=== PATIENT | male | born 1955 | race Caucasian/White ===

== ENCOUNTER 2016-07-21 05:39 | Emergency (ER) ==
[2016-07-21] MEDS ORDERED: ASPIRIN PO STA (06:15)
[2016-07-21] MEDS ORDERED: NS 1,000 ML IV ONE (06:15)
[2016-07-21] MEDS ORDERED: NS 1,000 ML ONE (06:15)
[2016-07-21 06:29] LABS: MANUAL DIFF NEEDED? NO
[2016-07-21 06:31] LABS: BASO% 0.4 % (0.0-0.8); EOS# 0.35 X1000 (0.0-0.7); EOS% 5.2 % (0.0-10.0); HEMATOCRIT 43.8 % (42.0-52.0); HEMOGLOBIN 15.4 g/dL (14.0-18.0); LYMPH# 2.05 X1000 (1.2-3.4); LYMPH% 30.2 % (20.5-51.1); MCH 30.2 PG (27-31); MCHC 35.2 g/dL (33-37); MCV 85.9 FL (81-99); MONO# 0.53 X1000 (0.11-0.59); MONO% 7.8 % (1.7-9.3); MPV 10.7 FL (7.4-10.4); NEUT% 56.4 % (42.2-75.2); PLT 144 X1000 (130-400)
[2016-07-21 06:46] LABS: INR 0.95 (0.86-1.15)
[2016-07-21 06:54] LABS: PTT PL 27.5 Seconds (22.6-43.9)
[2016-07-21 06:57] LABS: AGAP 13; ALBUMIN 4.2 g/dL (3.5-5.0); ALKALINE PHOSPHATASE 74 U/L (32-122); BUN 19 mg/dL (8-22); CALCIUM 9.3 mg/dL (8.8-10.2); CHLORIDE 106 mmol/L (98-107); CK PROFILE 66 U/L (24-204); COSMO 286; GOT 27 U/L (10-34); GPT 42 U/L (10-44); MAGNESIUM 2.1 mg/dL (1.5-2.7); POTASSIUM 3.9 mmol/L (3.5-5.1); SODIUM 140 mmol/L (136-145); TCO2 22 mmol/L (25-35); TOTAL PROTEIN 6.7 g/dL (6.3-8.3)
--- NOTE | 2016-07-21 07:05 | PROVIDER DOCUMENTATION ---
HPI-Cardiac General - General Source: patient, family - History of Present Illness-Cardiac Quality of Pain: reports: none Severity in ED: mild Onset/Duration: last night Timing: still present Context/Activities at Onset: reports: other (See above) Modifying Factors: improves with: nothing Palpitation Quality: irregular History of arrythmia: reports: other (See HPI) Recent use of:: reports: other (None) Nitro Today/Relief: reports: no nitro taken today Aspirin Treatment Today: reports: provided by ED Prior Chest Pain/Cardiac Workup: reports: no prior chest pain Associated Symptoms: reports: denies symptoms. denies: diaphoresis, dizziness, syncope, vomiting <Ashlee Courtney - Last Filed: 07/21/16 06:53> <Arabella Nichols - Last Filed: 07/21/16 08:23> - General Chief Complaint: Palpitations Stated Complaint: HEART ISSUES Time Seen by Provider: 07/21/16 06:07 Allergies/Adverse Reactions: Patient Allergies Allergy/AdvReac Type Severity Reaction Status Date / Time Penicillins Allergy Unknown Verified 07/21/16 05:56 Home Medications: Alprazolam [Xanax] 0.5 mg PO DIRECTED PRN PRN 07/21/16 Carvedilol Phosphate [Coreg Cr] 40 mg PO DAILY 07/21/16 Citalopram [Celexa] 40 mg PO DAILY 07/21/16 Glipizide E.r. [Glucotrol Xl] 5 mg PO DAILY 07/21/16 Lansoprazole [Prevacid] 30 mg PO DAILY 07/21/16 Metformin HCl 1,500 mg PO DAILY 07/21/16 PRAVAstatin [Pravachol] 80 mg PO DAILY 07/21/16 - History of Present Illness-Cardiac Nature of Presenting Problem: Palpitations since yesterday. Denies CP. reports pt did not sleep/rest well last night and feels worried about her upcoming neck surgery. H/o irregular HR in the past, but no cardiac stents. No recent stress test. DMII on pills, but it is not well controlled. Pt denies CP/SOB, but the palpitations are bothering him. (Ashlee Courtney) Review of Systems - Adult - REVIEW OF SYSTEMS - ADULT Constitutional: reports: no symptoms reported Eyes: reports: no symptoms reported Ears, Nose, Mouth & Throat: reports: no symptoms reported Cardiovascular: reports: irregular heart rate, palpitations. denies: chest pain , heart murmur, orthopnea Respiratory: reports: no symptoms reported Gastrointestinal: reports: no symptoms reported Genitourinary: reports: no symptoms reported Musculoskeletal: reports: no symptoms reported Integumentary: reports: no symptoms reported Neurological: reports: no symptoms reported Psychiatric: reports: no symptoms reported Endocrine: reports: no symptoms reported Hematologic/Lymphatic: reports: no symptoms reported Allergic/Immunologic: reports: no symptoms reported All Other Systems: Reviewed and Negative <Ashlee Courtney X - Last Filed: 07/21/16 06:53> Physical Exam-General - PHYSICAL EXAM-ADULT Initial Vital Signs Reviewed: Yes - CONSTITUTIONAL General Appearance: appears well, alert, no apparent distress - EYES Eyes: PERRL/EOMI, pink conjunctivae - HEAD, EARS, NOSE, MOUTH & THROAT HENMT: normocephalic/atraumatic, moist mucous membranes, normal ENT inspection - NECK Neck: non-tender, full range of motion, normal inspection - RESPIRATORY Respiratory: chest non-tender, lungs clear, normal breath sounds - CARDIOVASCULAR Cardiovascular: no edema, tachycardia, irregularly irregular. negative: extra beats, friction rub - GASTROINTESTINAL (ABDOMEN) Abdominal Exam: normal bowel sounds, non tender, soft - LYMPHATIC Lymphatic: no adenopathy - MUSCULOSKELETAL Back Exam: normal inspection, no CVA tenderness, no vertebral tenderness Extremity: normal range of motion, non-tender, normal gait - SKIN Integumentary: normal color, normal turgor, warm/dry - NEUROLOGIC Neurologic: grossly normal, no motor/sensory deficits - PSYCHIATRIC Psych/Mental Status: normal mood/affect, normal thought content, normal thought process, oriented x 3 <Ashlee Courtney X - Last Filed: 07/21/16 06:53> Progress - REASSESSMENT Reassessment #1 Time Reassessed: 07:09 Status: other (Pt is doing better and HR=80s-90s without tx at ER. Pt refused to be admitted and wants to wait till Dr. Valdovinos's office open and discuss with him for next step plan.) <Ashlee Courtney X - Last Filed: 07/21/16 06:53> - EKG 1 Time of EKG reading by physician:: 08:06 EKG Read and Signed by:: Ashlee Courtney EKG Interpretation (*Must complete 3 of following elements*): Abnormal Rate: 76 Rhythm: afib [place]: normal QRS: normal <Arabella Nichols - Last Filed: 07/21/16 08:23> - PLAN OF CARE/RESULTS Progress/Plan/Lab Results: Orders Category Date Time Status Cardiac Monitoring DIRECTED Care 07/21/16 06:16 Active Saline Loc NOW Care 07/21/16 06:16 Active CHEST-PORTABLE [RAD] Stat Exams 07/21/16 06:15 Taken CBC WITH ELECTRONIC DIFF [HEME] Stat Lab 07/21/16 06:10 Completed CK PROFILE [SP CHEM] Stat Lab 07/21/16 06:10 Completed CK PROFILE [SP CHEM] Stat Lab 07/21/16 07:57 Received COMPREHENSIVE METABOLIC PANEL [CHEM] Stat Lab 07/21/16 06:10 Completed MAGNESIUM [CHEM] Stat Lab 07/21/16 06:10 Completed PRO B-NATRIURETIC PEPTIDE Stat Lab 07/21/16 06:10 Com[address]IME WITH INR PL [COAG] Stat Lab 07/21/16 06:[address] [COAG] Stat Lab 07/21/16 06:10 Completed TROPONIN T Stat Lab 07/21/16 06:10 Completed TROPONIN T Stat Lab 07/21/16 07:57 Received 0.9% Sodium Chloride Inj [Ns] 1,000 ml Med 07/21/16 06:15 Discontinued .ROUTE As Directed 0.9% Sodium Chloride Inj [Ns] 1,000 ml Med 07/21/16 06:15 Discontinued IV 999 mls/hr Aspirin Med 07/21/16 06:15 Discontinued 325 mg PO STAT STA Enoxaparin [Lovenox] Med 07/21/16 08:21 Discontinued 90 mg SUBQ NOW ONE EKG [EKG] Stat Ther 07/21/16 06:03 Ordered EKG [EKG] Stat Ther 07/21/16 07:44 Draft Vital Signs - 24 hr 07/21/16 07/21/16 05:50 06:11 Temperature 96.4 F L Pulse Rate 105 H 106 H Respiratory 18 21 Rate Blood Pressure 134/78 158/95 O2 Sat by Pulse 98 Oximetry Laboratory Tests 07/21/16 07/21/16 07/21/16 06:10 06:10 06:10 WBC RBC Hgb Hct MCV MCH MCHC RDW Std Deviation Plt Count MPV Immature Gran % (Auto) Neut % (Auto) Lymph % (Auto) [place] % (Auto) Eos % (Auto) Baso % (Auto) Immature Gran # (Auto) Neut # (Auto) Lymph # (Auto) [place] # (Auto) Eos # (Auto) Baso # (Auto) PT INR APTT (Factor Assay) Sodium 140 Potassium 3.9 Chloride 106 Carbon Dioxide 22 L Anion Gap 13 BUN 19 Creatinine 1.0 Estimated GFR/1.73 m2 > 60 BUN/Creatinine Ratio 19 Glucose 175 H Calculated Osmolality 286 Calcium 9.3 Magnesium 2.1 Total Bilirubin 0.50 AST 27 ALT 42 Alkaline Phosphatase 74 Creatine Kinase 66 Troponin T < 0.010 [id number] Pept 815 H Total Protein 6.7 Albumin 4.2 Globulin 3.0 Albumin/Globulin Ratio 2.0 07/21/16 07/21/16 06:10 06:10 WBC 6.78 RBC 5.10 Hgb 15.4 Hct 43.8 MCV 85.9 MCH 30.2 MCHC 35.2 RDW Std Deviation 12.7 Plt Count 144 MPV 10.7 H Immature Gran % (Auto) 0.0 Neut % (Auto) 56.4 Lymph % (Auto) 30.2 [place] % (Auto) 7.8 Eos % (Auto) 5.2 Baso % (Auto) 0.4 Immature Gran # (Auto) 0.00 Neut # (Auto) 3.82 Lymph # (Auto) 2.05 [place] # (Auto) 0.53 Eos # (Auto) 0.35 Baso # (Auto) 0.03 PT 13.0 INR 0.95 APTT (Factor Assay) 27.5 Sodium Potassium Chloride Carbon Dioxide Anion Gap BUN Creatinine Estimated GFR/1.73 m2 BUN/Creatinine Ratio Glucose Calculated Osmolality Calcium Magnesium Total Bilirubin AST ALT Alkaline Phosphatase Creatine Kinase Troponin T [id number] Pept Total Protein Albumin Globulin Albumin/Globulin Ratio (Arabella Nichols) Departure <Ashlee Courtney - Last Filed: 07/21/16 06:53> - Departure Time of Disposition Order: 08:22 Certified Medical Emergency: Emergent <Arabella Nichols - Last Filed: 07/21/16 08:23> - Departure DIAGNOSIS: Atrial fibrillation with RVR Disposition: HOME 01 Condition: Stable Additional Instructions: Go to office ED Follow Up Instructions: You have been treated by a care provider in the Emergency Department. These instructions are being provided to you so you can have an understanding of how to care for yourself upon discharge. Upon discharge from the Emergency Department, you are responsible for making arrangements for follow-up care by a physician of your choice. Take all prescribed medications as directed. Return to the Emergency Department immediately for any new or worsening symptoms. You may call the Physician Referral phone number at [phone] to obtain a list of Physicians who are taking new patients. Attestation - Scribe Verification/Attestation Scribe:: Arabella Nichols Acting as Scribe for:: Ashlee Courtney Scribe documention review:: This chart was documented by a scribe and accurately reflects the service the provider performed and the decisions made by the provider. <Arabella Nichols - Last Filed: 07/21/16 08:23> Physician Attestation
--- NOTE | 2016-07-21 08:16 | EKG Report ---
Test Performed on : 07/21/2016 08:06:28 AM Test Reason : repeat EKG Blood Pressure : / mmHG Vent. Rate : 076 BPM Atrial Rate : 111 BPM P-R Int : 000 ms QRS Dur : 086 ms QT Int : 384 ms P-R-T Axes : 000 017 040 degrees QTc Int : 432 ms Atrial fibrillation. Abnormal ECG When compared with ECG of 21-JUL-2016 06:03, (Unconfirmed) Vent. rate has decreased BY 38 BPM Unconfirmed Result
[2016-07-21] MEDS ORDERED: LOVENOX SUBQ ONE (08:21)
[2016-07-21] MEDS ORDERED: LOVENOX ONE (08:31)
[2016-07-21 08:50] VITALS: BP 123/92
--- NOTE | 2016-07-21 10:38 | Diag Imaging Result Document ---
PROCEDURE NAME: CHEST-PORTABLE - 07/21/2016 SINGLE FRONTAL RADIOGRAPH OF THE CHEST: COMPARISON: None available. FINDINGS: The lungs are grossly clear. There is no discrete pleural fluid collection or pneumothorax. The cardiomediastinal silhouette and upper airway are grossly unremarkable. IMPRESSION: No evidence of acute chest pathology.
--- NOTE | 2016-07-21 14:27 | EKG Report ---
Test Performed on : 07/21/2016 06:03:48 AM Test Reason : CP Blood Pressure : / mmHG Vent. Rate : 114 BPM Atrial Rate : 133 BPM P-R Int : 000 ms QRS Dur : 084 ms QT Int : 302 ms P-R-T Axes : 000 036 049 degrees QTc Int : 416 ms Atrial fibrillation. with rapid ventricular response. Abnormal ECG No previous ECGs available Unconfirmed Result
== END 2016-07-21 08:50 | disposition home or self-care (01) ==
LOC: P.ED 05:39
DX: I48.91 Unspecified atrial fibrillation (principal); R94.31 Abnormal electrocardiogram [ECG] [EKG]; R00.2 Palpitations; R00.0 Tachycardia, unspecified; E11.9 Type 2 diabetes mellitus without complications; Z79.899 Other long term (current) drug therapy
CPT/HCPCS: 36415; 71010; 80053; 82550; 83735; 83880; 84484; 85025; 85610; 85730; 93005; 96360; 96372; J1650; J7030